=== PATIENT | male | born 1985 | race Caucasian/White ===

== ENCOUNTER → 2022-12-20 | Outpatient (REF) | payer BC ==
[2022-12-20 22:10] LABS: APPEARANCE, URINE CLEAR (CLEAR); BACTERIA, URINE AUTO NEGATIVE (NEGATIVE); BILIRUBIN, URINE AUTO NEGATIVE (NEGATIVE); BLOOD, URINE BLOOD NEGATIVE (NEGATIVE); COLOR, URINE STRAW (YELLOW); GLUCOSE, URINE (UA) AUTO NEGATIVE (NEGATIVE); KETONE, URINE AUTO NEGATIVE (NEGATIVE); LEUKOCYTE ESTERASE, URINE AUTO NEGATIVE (NEGATIVE); NITRITE, URINE AUTO NEGATIVE (NEGATIVE); PROTEIN, URINE AUTO NEGATIVE (NEGATIVE); RBC, URINE AUTO 0 /HPF (0-3); SPECIFIC GRAVITY URINE AUTO 1.005 (1.002-1.035); SQUAMOUS EPITHELIAL CELL UR AU 0 /HPF (0-6); UROBILINOGEN, URINE AUTO 0.2 mg/dL (0.0-2.0); WBC, URINE AUTO 1 /HPF (0-3)
[2022-12-20 23:37] LABS: GC DNA AMPLIFICATION NEGATIVE (NEGATIVE)
== END ==
LOC: M LAB REF 21:49
PROVIDERS: ATTEND Physician Assistant
DX: N39.0 Urinary tract infection, site not specified (principal)

== ENCOUNTER 2024-02-23 21:08 | Emergency (ER) | payer MEDICAID, OTHER ==
[~2024-02-23] VITALS: Ht 172.7 cm; Wt 81.8 kg
[2024-02-23 21:09] VITALS: TEMP 97.9
[2024-02-23] MEDS: MORPHINE 2 MG/ML 1ML VIAL IV ONE (23:02)
[2024-02-23] MEDS: NS 1,000 ML IV SCH (23:02)
[2024-02-23] MEDS: BOOSTRIX VACCINE (TETANUS/DIPHTH/ACEL. PERTUSSIS) 0.5ML SYR IM.IMMUN ONE (23:03)
[2024-02-23 23:23] VITALS: O2SAT 98
[2024-02-23 23:30] VITALS: BP 128/57
== END 2024-02-23 23:45 | disposition short-term general hospital (02) ==
LOC: M ED 21:08
DX: S65.10 Unspecified injury of radial artery at wrist and hand level (principal); W25.XXXA Contact with sharp glass, initial encounter; E03.9 Hypothyroidism, unspecified; Y92.009 Unspecified place in unspecified non-institutional (private) residence as the place of occurrence of the external cause; Y93.89 Activity, other specified; Y99.9 Unspecified external cause status; Z23 Encounter for immunization

== ENCOUNTER 2024-08-04 20:22 | Emergency (ER) | payer BC, MEDICAID, OTHER ==
[~2024-08-04] VITALS: Ht 172.7 cm; Wt 82.6 kg
[2024-08-04 20:25] VITALS: TEMP 97.1
[2024-08-04] MEDS ORDERED: AMOX500T (20:39)
[2024-08-04] MEDS: ONDANSETRON 4MG 2ML VIAL IV ONE (22:25)
[2024-08-04] MEDS: NS (Normal Saline) 0.9% 1,000 ML IV ONE (22:44)
[2024-08-04 22:54] LABS: BASO # 0.1 10^3/uL (0.0-0.2); BASO % 0.4 % (0.0-1.0); HEMOGLOBIN 16.3 g/dl (13.5-17.5); LYMPH # 1.1 10^3/uL (1.5-5.0); LYMPH % 9.6 % (24.0-44.0); MEAN CORPUSCULAR HEMOGLOBIN 30.7 pg (27.0-33.0); MEAN CORPUSCULAR HGB CONC 34.7 g/dl (32.0-36.5); MEAN CORPUSCULAR VOLUME 88.5 fl (80.0-96.0); MONO # 0.3 10^3/uL (0.0-0.8); MONO % 2.7 % (2.0-8.0); NEUTROPHILS # 10.3 10^3/uL (1.5-8.5); PLATELET COUNT, AUTOMATED 269 10^3/uL (150-450); RED BLOOD COUNT 5.31 10^6/uL (4.30-6.10); WHITE BLOOD COUNT 11.9 10^3/uL (4.0-10.0)
[2024-08-04 23:13] LABS: BARBITURATES URINE NEGATIVE (NEGATIVE)
[2024-08-04 23:14] LABS: AMPHETAMINES LEVEL URINE NEGATIVE (NEGATIVE); BENZODIAZEPINES URINE NEGATIVE (NEGATIVE); COCAINE METABOLITE URINE NEGATIVE (NEGATIVE); METHADONE URINE NEGATIVE (NEGATIVE); OPIATES URINE NEGATIVE (NEGATIVE); PHENCYCLIDINE URINE NEGATIVE (NEGATIVE)
[2024-08-04 23:15] LABS: ETHYL ALCOHOL (ETHANOL) < 0.003 % (0.000-0.010)
[2024-08-04 23:17] LABS: SALICYLATE LEVEL < 3.0 MG/DL (<30)
[2024-08-04 23:18] LABS: ALBUMIN 4.2 G/DL (3.2-5.2); ALKALINE PHOSPHATASE 74 U/L (40-129); ALT/SGPT 26 U/L (7.0-40); AST/SGOT 18 U/L (<34); BILIRUBIN,DIRECT 0.2 MG/DL (<0.4); BILIRUBIN,TOTAL 0.6 MG/DL (0.3-1.2); BLOOD UREA NITROGEN 8 MG/DL (9-23); CALCIUM LEVEL 10.3 MG/DL (8.5-10.1); CARBON DIOXIDE LEVEL 27 MMOL/L (20-31); CHLORIDE LEVEL 109 MMOL/L (98-107); CREATININE FOR GFR 1.01 MG/DL (0.70-1.30); GLOMERULAR FILTRATION RATE > 60.0 (>60); GLUCOSE, FASTING 94 MG/DL (60-100); POTASSIUM SERUM 4.5 MMOL/L (3.5-5.1); SODIUM LEVEL 144 MMOL/L (136-145); TOTAL PROTEIN 7.8 G/DL (5.7-8.2)
[2024-08-04 23:20] LABS: THYROID STIMULATING HORMONE 0.711 uIU/ML (0.55-4.78)
[2024-08-04 23:31] LABS: CANNABINOIDS URINE POSITIVE (NEGATIVE)
[2024-08-05] VITALS: BP 128/68; O2SAT 97
[2024-08-05] MEDS ORDERED: ONDA-282 PO (00:02)
== END 2024-08-05 00:17 | disposition home or self-care (01) ==
LOC: M ED 20:22
DX: R11.2 Nausea with vomiting, unspecified (principal); R19.7 Diarrhea, unspecified; F12.10 Cannabis abuse, uncomplicated; Z79.2 Long term (current) use of antibiotics; Z79.83 Long term (current) use of bisphosphonates
CPT/HCPCS: 80048; 80076; 80143; 80307; 82077; 84443; 85025; 87486; 87581; 87633; 87798; 96374; 99284; J2405

== ENCOUNTER 2024-08-19 18:55 | Emergency (ER) | payer BC, OTHER ==
[~2024-08-19] VITALS: Ht 172.7 cm; Wt 79.9 kg
[~2024-08-19 18:55] MED LIST: AMOX500T; ONDA-282 PO
[2024-08-19] MEDS ORDERED: BUPR-597 (19:06)
[2024-08-20 00:41] LABS: BASO # 0.1 10^3/uL (0.0-0.2); BASO % 1.5 % (0.0-1.0); EOS # 0.2 10^3/uL (0.0-0.5); EOS % 2.7 % (0.0-3.0); HEMATOCRIT 41.1 % (42.0-52.0); HEMOGLOBIN 14.5 g/dl (13.5-17.5); LYMPH # 2.7 10^3/uL (1.5-5.0); LYMPH % 49.4 % (24.0-44.0); MEAN CORPUSCULAR HEMOGLOBIN 31.6 pg (27.0-33.0); MEAN CORPUSCULAR HGB CONC 35.3 g/dl (32.0-36.5); MEAN CORPUSCULAR VOLUME 89.5 fl (80.0-96.0); MONO # 0.5 10^3/uL (0.0-0.8); MONO % 8.6 % (2.0-8.0); NEUTROPHILS # 2.1 10^3/uL (1.5-8.5); NEUTROPHILS % 37.6 % (36.0-66.0); PLATELET COUNT, AUTOMATED 196 10^3/uL (150-450); RED BLOOD COUNT 4.59 10^6/uL (4.30-6.10); WHITE BLOOD COUNT 5.5 10^3/uL (4.0-10.0)
[2024-08-20 01:02] LABS: MONO SCRN NEGATIVE (NEGATIVE)
[2024-08-20 01:04] LABS: BLOOD UREA NITROGEN 15 MG/DL (9-23); CALCIUM LEVEL 9.3 MG/DL (8.5-10.1); CARBON DIOXIDE LEVEL 26 MMOL/L (20-31); CHLORIDE LEVEL 108 MMOL/L (98-107); CREATININE FOR GFR 1.22 MG/DL (0.70-1.30); GLOMERULAR FILTRATION RATE > 60.0 (>60); GLUCOSE, FASTING 96 MG/DL (60-100); POTASSIUM SERUM 3.7 MMOL/L (3.5-5.1); SODIUM LEVEL 144 MMOL/L (136-145)
[2024-08-20 01:06] LABS: FREE T4 1.52 NG/DL (0.89-1.76); THYROID STIMULATING HORMONE 0.683 uIU/ML (0.55-4.78)
[2024-08-20 01:53] VITALS: BP 128/79; TEMP 98.2; O2SAT 97
== END 2024-08-20 01:58 | disposition home or self-care (01) ==
LOC: M ED 18:55
DX: R53.81 Other malaise (principal)

== ENCOUNTER 2024-11-01 14:05 | Emergency (ER) | payer OTHER ==
[~2024-11-01] VITALS: Ht 175.3 cm; Wt 88.4 kg
[~2024-11-01 14:05] MED LIST changes: +BUPR-766
[2024-11-01] MEDS ORDERED: EXEM25TA (14:18)
[2024-11-01] MEDS ORDERED: LEVO75TA4 (14:18)
[2024-11-01] MEDS ORDERED: VRAY3CAP (14:18)
[2024-11-01] MEDS ORDERED: TEST200I14 (14:18)
[2024-11-01] MEDS ORDERED: ERGO500029 (14:18)
[2024-11-01] MEDS ORDERED: BUPR-766 PO (17:51)
[2024-11-01] MEDS ORDERED: LEVO75TA4 PO (17:51)
[2024-11-01 18:51] VITALS: BP 130/75; TEMP 96.7; O2SAT 100
== END 2024-11-01 18:53 | disposition home or self-care (01) ==
LOC: M ED 14:05
DX: Z76.0 Encounter for issue of repeat prescription (principal); E03.9 Hypothyroidism, unspecified; F32.A Depression, unspecified; F20.9 Schizophrenia, unspecified; Z79.899 Other long term (current) drug therapy